=== PATIENT | female | born 1955 | race Hispanic/Latino ===

== ENCOUNTER 2018-06-05 10:43 | Observation (INO) | payer BC ==
[~2018-06-05] VITALS: Ht 165.1 cm; Wt 76.7 kg
[2018-06-05] VITALS (23 sets, daily range): BP systolic 111–138; BP diastolic 54–78
[2018-06-05 11:52] LABS: BASOPHILS % (AUTO) 0.2 % (0.0-5.0); EOSINOPHILS % (AUTO) 0.1 % (0.0-8.0); HEMATOCRIT 40.3 % (36-48); LYMPHOCYTES % (AUTO) 6.2 % (21.0-51.0); MEAN CORPUSCULAR HEMOGLOBIN 28.4 pg (27.0-33.0); MONOCYTES % (AUTO) 3.5 % (3.0-13.0); PLATELET COUNT (AUTO) 203 K/uL (130-400); RED BLOOD CELL COUNT(AUTO) 4.69 MIL/uL (4.00-5.50); RED CELL DISTRIBUTION WIDTH 13.4 % (11.0-15.5); WHITE BLOOD COUNT (AUTO) 14.3 K/uL (4.8-10.8)
[2018-06-05 11:59] LABS: CREATININE 0.7 mg/dL (0.5-1.5); POTASSIUM 3.9 mmol/L (3.5-5.1)
[2018-06-05 12:03] LABS: ALBUMIN 3.5 g/dL (3.5-5.0); BILIRUBIN,TOTAL 0.5 mg/dL (0.2-1.0); TOTAL PROTEIN, SERUM 7.8 g/dL (6.0-8.3)
[2018-06-05 12:05] LABS: APPEARANCE,URINE Cloudy (CLEAR); BILIRUBIN,URINE Negative (NEGATIVE); COLOR,URINE Yellow (YELLOW); GLUCOSE, URINE (UA) Negative (NEGATIVE); KETONES,URINE Trace mg/dL (NEGATIVE); LEUKOCYTE ESTERASE ,URINE Large (NEGATIVE); NITRATE,URINE Negative (NEGATIVE); OCCULT BLOOD,URINE Trace (NEGATIVE); PROTEIN,URINE Trace (NEGATIVE); UROBILINOGEN,URINE 0.2 mg/dL (0.2-1.0)
[2018-06-05] MEDS ORDERED: ZOSYN 3.375GM+NS 50ML 50 ML IV ONE (12:25)
[2018-06-05] MEDS ORDERED: MORPHINE SULFATE 4 MG/1ML SYG ONE (12:25)
[2018-06-05] MEDS ORDERED: ONDANSETRON HCL 4 MG/2 ML VIAL ONE ×2 (12:25→12:57)
[2018-06-05] MEDS ORDERED: SODIUM CHLORIDE 0.9% 100 ML IV ONE (12:26)
[2018-06-05 12:28] LABS: BACTERIA,URINE Many /HPF (None Seen); RBC,URINE 0-1 /HPF (0-1); WBC,URINE TNTC /HPF (0-1)
[2018-06-05] MEDS ORDERED: LACTATED RINGERS 1000ML 1,000 ML IV ONE (12:58)
[2018-06-05] MEDS ORDERED: PROPOFOL 10 MG/ML 20ML VIAL IV ONE (12:58)
[2018-06-05] MEDS ORDERED: SUCCINYLCHOLINE CHLORIDE 20 MG/ML 10 ML VIAL ONE (12:58)
[2018-06-05] MEDS ORDERED: LIDOCAINE PF 2% 5ML ABBOJECT ONE (12:58)
[2018-06-05] MEDS ORDERED: FENTANYL CITRATE PF 50 MCG/1 ML 2ML VIAL ONE (12:58)
[2018-06-05] MEDS ORDERED: ROCURONIUM 10MG/1ML SYR 10 MG/ML ML ONE (12:58)
[2018-06-05] MEDS ORDERED: MIDAZOLAM HCL 1 MG/ML 2ML VIAL ONE (12:59)
[2018-06-05] MEDS ORDERED: GLYCOPYRROLATE 1 MG/5 ML SYRINGE ONE (13:32)
[2018-06-05] MEDS ORDERED: NEOSTIGMINE 5MG/5ML SYR IV ONE (13:32)
[2018-06-05] MEDS ORDERED: DEXAMETHASONE SOD PHOSPHATE 10MG/ML 1ML VIAL ONE ×2 (13:33)
[2018-06-05] MEDS ORDERED: ACETAMINOPHEN-CODEINE 300/30MG TAB PO PRN (14:00)
[2018-06-05] MEDS ORDERED: MORPHINE SULFATE 2 MG/ML 1ML SYG IV PRN (14:00)
[2018-06-05] MEDS ORDERED: ONDANSETRON HCL 4 MG/2 ML VIAL IVP PRN (14:00)
[2018-06-05] MEDS ORDERED: ACETAMINOPHEN 325 MG TAB PO PRN (14:00)
[2018-06-05] MEDS ORDERED: MEPERIDINE-PF 25 MG/ML SYG ONE ×2 (14:10→14:19)
[2018-06-05] MEDS: LACTATED RINGERS 1000ML 1,000 ML IV SCH ×2 (14:12→15:21)
[2018-06-05] MEDS: ZOSYN 3.375GM+NS 50ML 50 ML IV SCH (20:29)
[2018-06-06] MEDS: LACTATED RINGERS 1000ML 1,000 ML IV SCH (03:35)
[2018-06-06 04:26] VITALS: BP 106/62
[2018-06-06] MEDS: ZOSYN 3.375GM+NS 50ML 50 ML IV SCH ×2 (04:34→13:33)
[2018-06-06 08:00] VITALS: BP 107/69
[2018-06-06 11:00] VITALS: BP 111/62
[2018-06-06] MEDS ORDERED: ACET1TAB12 PO (12:50)
[2018-06-06 16:00] VITALS: BP 103/56
== END 2018-06-06 17:47 | disposition home or self-care (01) ==
LOC: EDH 10:43 → INTOOBSV 12:38 → EDHIP 12:38 → 4BH 14:29
PROVIDERS: ADMIT Surgery; ATTEND Surgery
DX: K35.80 Unspecified acute appendicitis (principal)
CPT/HCPCS: 36415; 44950; 74176; 80053; 81001; 83690; 85025; 88304; 96365; 96366 ×2; 99285; A4450; A4452; A4930; G0378 ×29; J0330; J1100 ×2; J2001; J2175 ×2; J2250; J2270; J2405 ×2; J2543 ×4; J2704; J2710; J3010; J3490; J7120 ×4